=== PATIENT | female | born 1975 | race Two or more races ===

== ENCOUNTER 2020-09-02 09:17 | Inpatient (IN) | payer OTHER ==
[~2020-09-02] VITALS: Ht 167.6 cm; Wt 74.0 kg
[2020-09-23] MEDS ORDERED: AMPICILLIN 2 GM in SODIUM CHLORIDE 0.9% 100 ML IVPB STA (06:13)
[2020-09-23] MEDS ORDERED: TERBUTALINE 1 MG/ML, 1ML IVPush PRN (06:30)
[2020-09-23] MEDS ORDERED: CALCIUM CARBONATE 500 MG TAB.CHEW PO PRN (06:30)
[2020-09-23] MEDS ORDERED: FENTANYL PF 100 MCG/2ML IV PRN (06:30)
[2020-09-23] MEDS ORDERED: TERBUTALINE 1 MG/ML, 1ML SQ PRN (06:30)
[2020-09-23] MEDS ORDERED: FENTANYL PF 100 MCG/2ML IVPush PRN (06:30)
[2020-09-23] MEDS ORDERED: ONDANSETRON 2MG/ML, 2ML IVPush PRN (06:30)
[2020-09-23] MEDS ORDERED: OXYTOCIN 30U/ 0.9% NaCL 500ML 500 ML IV PRN (06:30)
[2020-09-23] MEDS ORDERED: OXYTOCIN 30U/ 0.9% NaCL 500ML 500 ML IV ONE (06:30)
[2020-09-23] MEDS: LACTATED RINGERS 1,000 ML IV SCH ×3 (06:37→22:30)
[2020-09-23 06:47] LABS: BASOPHILS % (AUTO) 0 % (0-1); EOSINOPHILS % (AUTO) 2 % (1-7); LYMPHOCYTES % (AUTO) 17 % (22-44); MEAN CORPUSCULAR HEMOGLOBIN 32.5 pg (27.0-34.8); MEAN CORPUSCULAR HGB CONC 34.5 g/dL (32.4-35.8); MEAN PLATELET VOLUME 9.9 fL (7.4-10.4); MONOCYTES % (AUTO) 9 % (2-9); NEUTROPHILS % (AUTO) 72 % (42-75); PLATELET COUNT 148 x10^3/uL (130-400); RED BLOOD COUNT 4.33 x10^6/uL (3.82-5.3); RED CELL DISTRIBUTION WIDTH 12.9 % (9.6-15.2)
[2020-09-23 06:49] LABS: MD NO
[2020-09-23] MEDS: D5%-LACTATED RINGERS 1,000 ML IV SCH ×3 (07:00→23:00)
[2020-09-23] MEDS: AMPICILLIN 1 GM in SODIUM CHLORIDE 0.9% 100 ML IVPB SCH ×5 (10:22→22:30)
[2020-09-23 20:00] VITALS: BP 121/85
[2020-09-23] MEDS ORDERED: ONDANSETRON 2MG/ML, 2ML ONE (20:56)
[2020-09-24] MEDS ORDERED: OXYTOCIN 30U/ 0.9% NaCL 500ML 500 ML ONE (00:56)
[2020-09-24] MEDS ORDERED: SIMETHICONE 80 MG CHEW TAB PO PRN (01:00)
[2020-09-24] MEDS ORDERED: MISOPROSTOL 200 MCG TABLET PR PRN (01:00)
[2020-09-24] MEDS ORDERED: OXYTOCIN 10 UNITS/ML, 1ML IM PRN (01:00)
[2020-09-24] MEDS ORDERED: METHYLERGONOVINE 0.2 MG/ML IM PRN (01:00)
[2020-09-24] MEDS ORDERED: HYDROcodone/APAP 5/325 TABLET PO PRN ×2 (01:00)
[2020-09-24] MEDS ORDERED: ACETAMINOPHEN 325 MG TABLET PO PRN (01:00)
[2020-09-24] MEDS ORDERED: CARBOPROST TROMETHAMINE 250 MCG/ML, 1ML IM PRN (01:00)
[2020-09-24] MEDS ORDERED: ONDANSETRON 2MG/ML, 2ML IV PRN (01:00)
[2020-09-24] MEDS ORDERED: NEWBORN KIT ONE (01:01)
[2020-09-24 03:00] VITALS: BP 121/84
[2020-09-24] MEDS: IBUPROFEN 600 MG TABLET PO PRN ×3 (05:11→17:37)
[2020-09-24] MEDS: OXYTOCIN 30U/ 0.9% NaCL 500ML 500 ML IV SCH ×2 (07:13→19:00)
[2020-09-24] MEDS: PRENATAL VIT/IRON/FA 1 EACH TABLET PO SCH (07:16)
[2020-09-24] MEDS: DOCUSATE 100 MG CAPSULE PO PRN (07:16)
[2020-09-24 07:35] VITALS: BP 114/76
[2020-09-24 08:56] LABS: MEAN CORPUSCULAR HEMOGLOBIN 32.5 pg (27.0-34.8); MEAN CORPUSCULAR HGB CONC 34.7 g/dL (32.4-35.8); MEAN PLATELET VOLUME 9.8 fL (7.4-10.4); PLATELET COUNT 133 x10^3/uL (130-400); RED CELL DISTRIBUTION WIDTH 12.9 % (9.6-15.2)
[2020-09-24 10:08] LABS: MD YES
[2020-09-24 10:12] LABS: BANDS%(MANUAL) 10 % (0-7); LYMPH#(MANUAL) 0.95 x10^3/uL (1-3.4); LYMPHS% (MANUAL) 5 % (22-44); MONOS#(MANUAL) 1.33 x10^3/uL (0.3-2.7); MONOS% (MANUAL) 7 % (2-9); SEG#(MANUAL) 14.82 x10^3/uL (1.8-6.8); SEGS% (MANUAL) 78 % (42-75)
[2020-09-24 10:14] LABS: <RBC MORPHOLOGY> NORMAL
[2020-09-24 10:15] LABS: <PLATELET ESTIMATE> ADEQUATE; <PLT MORPHOLOGY> NORMAL PLT MORPH
[2020-09-24 11:50] VITALS: BP 110/74
[2020-09-24 20:30] VITALS: BP 115/81
[2020-09-25] MEDS: DOCUSATE 100 MG CAPSULE PO PRN ×3 (00:34→07:39)
[2020-09-25] MEDS: IBUPROFEN 600 MG TABLET PO PRN ×3 (00:34→13:18)
[2020-09-25] MEDS: OXYTOCIN 30U/ 0.9% NaCL 500ML 500 ML IV SCH ×2 (05:00→15:00)
[2020-09-25 07:10] VITALS: BP 110/70
[2020-09-25] MEDS: PRENATAL VIT/IRON/FA 1 EACH TABLET PO SCH (07:37)
[2020-09-25] MEDS ORDERED: IBUP-1222 PO (13:25)
[2020-09-25] MEDS ORDERED: HYDR-1067 PO (13:32)
[2020-09-25] MEDS ORDERED: SENN-52 PO (13:32)
== END 2020-09-25 17:15 | disposition home or self-care (01) | DRG 807 ==
LOC: LDIP 09-23 05:51 → 2NW 09-24 02:42
PROVIDERS: ADMIT Obstetrics & Gynecology; ATTEND Obstetrics & Gynecology
PROC: 10E0XZZ Delivery of Products of Conception, External Approach (ICD-10-PCS; principal; 2020-09-24)
PROC: 10H07YZ Insertion of Other Device into Products of Conception, Via Natural or Artificial Opening (ICD-10-PCS; 2020-09-24)
PROC: 3E0R3BZ Introduction of Anesthetic Agent into Spinal Canal, Percutaneous Approach (ICD-10-PCS; 2020-09-24)
PROC: 00HU33Z Insertion of Infusion Device into Spinal Canal, Percutaneous Approach (ICD-10-PCS; 2020-09-24)
PROC: 10907ZC Drainage of Amniotic Fluid, Therapeutic from Products of Conception, Via Natural or Artificial Opening (ICD-10-PCS; 2020-09-24)
PROC: 0HQ9XZZ Repair Perineum Skin, External Approach (ICD-10-PCS; 2020-09-24)
DX: O99.824 Streptococcus B carrier state complicating childbirth (principal); Z37.0 Single live birth; Z20.822 Contact with and (suspected) exposure to COVID-19; Z3A.39 39 weeks gestation of pregnancy; O70.0 First degree perineal laceration during delivery
CPT/HCPCS: 36415; 85025; 86592; 86850; 86900; G0378; J0290; J2405; J2590; J7120

== ENCOUNTER → 2020-09-17 | Outpatient (CLI) | payer OTHER | END | disposition home or self-care (01) | LOC: STAR 11:03 | PROVIDERS: ATTEND Obstetrics & Gynecology | DX: Z20.822 Contact with and (suspected) exposure to COVID-19 (principal) | CPT/HCPCS: U0003 ==

== ENCOUNTER 2021-04-01 08:37 | Outpatient (CLI) | payer OTHER ==
[~2021-04-01 08:37] MED LIST: HYDR-2214 PO; IBUP-1222 PO; SENN-52 PO
[2021-04-01] MEDS ORDERED: FLUO10CA13 PO (08:54)
[2021-04-01 09:27] LABS: MICROSCOPIC NOT IND
[2021-04-01 09:31] LABS: BASOPHILS % (AUTO) 1 % (0-1); EOSINOPHILS % (AUTO) 4 % (1-7); LYMPHOCYTES % (AUTO) 21 % (22-44); MEAN CORPUSCULAR HEMOGLOBIN 34.1 pg (27.0-34.8); MEAN CORPUSCULAR HGB CONC 35.2 g/dL (32.4-35.8); MONOCYTES % (AUTO) 8 % (2-9); NEUTROPHILS % (AUTO) 66 % (42-75); PLATELET COUNT 261 x10^3/uL (130-400); RED BLOOD COUNT 4.45 x10^6/uL (3.82-5.3); RED CELL DISTRIBUTION WIDTH 12.2 % (9.6-15.2)
[2021-04-01 09:35] LABS: ALANINE AMINOTRANSFERASE 16 U/L (12-78); ALBUMIN 4.1 g/dL (3.4-5.0); ANION GAP 7 mmol/L (5-15); CALCIUM 9.2 mg/dL (8.5-10.1); CHLORIDE 105 mmol/L (98-107); CREATININE 0.76 mg/dL (0.55-1.02)
[2021-04-01 09:40] LABS: ALKALINE PHOSPHATASE 52 U/L (45-117); BILIRUBIN,TOTAL 0.7 mg/dL (0.2-1.0); TOTAL PROTEIN 7.5 g/dL (6.4-8.2)
== END 2021-04-01 23:59 | disposition home or self-care (01) ==
LOC: STAR 08:37
PROVIDERS: ATTEND Obstetrics & Gynecology Gynecology
DX: Z01.812 Encounter for preprocedural laboratory examination (principal); Z20.822 Contact with and (suspected) exposure to COVID-19; N81.11 Cystocele, midline; N39.3 Stress incontinence (female) (male)
CPT/HCPCS: 80053; 81003; 84702; 85025; 87086; 87635

== ENCOUNTER 2021-04-07 10:30 | Day surgery (SDC) | payer OTHER ==
[~2021-04-07] VITALS: Ht 167.6 cm; Wt 63.1 kg
[~2021-04-07 10:30] MED LIST changes: +BUPIVACAINE/PF 0.25% ONE; +EPINEPHRINE 1 MG/ML, 1ML ONE; +FLUO10CA13 PO; +GENTAMICIN 80 MG/2 ML ONE; +LIDOCAINE/PF 1%, 30ML ONE; +MANNITOL PMX 20% 0 ML ONE; +SILVER NITRATE STICK TP ONE; +VANCOMYCIN 500 MG ONE
[2021-04-07] MEDS ORDERED: SODIUM CHLORIDE 0.9% 50 ML ONE ×2 (10:34→11:45)
[2021-04-07 11:02] VITALS: BP 113/81
[2021-04-07] MEDS ORDERED: CHLORHEXIDINE 15 ML UDC ONE (11:09)
[2021-04-07 11:15] LABS: HCG UR SG 1.027 (1.003-1.030)
[2021-04-07] MEDS ORDERED: GENTAMICIN 80 MG/2 ML ONE (11:45)
[2021-04-07] MEDS ORDERED: LIDOCAINE/PF 1%, 30ML ONE (11:45)
[2021-04-07] MEDS ORDERED: SCOPOLAMINE 1MG PATCH TD ONE (11:50)
[2021-04-07] MEDS ORDERED: FENTANYL PF 250 MCG/5ML ONE (11:59)
[2021-04-07] MEDS ORDERED: MIDAZOLAM 1 MG/ML, 2ML ONE (11:59)
[2021-04-07] MEDS ORDERED: PROPOFOL 50 ML ONE (12:51)
[2021-04-07] MEDS ORDERED: HYDROmorphone 1 MG/ML, 1ML INJ IVPush PRN (13:30)
[2021-04-07] MEDS ORDERED: LABETALOL 5MG/ML, 20ML IV PRN (13:30)
[2021-04-07] MEDS ORDERED: MIDAZOLAM 1 MG/ML, 2ML IV PRN (13:30)
[2021-04-07] MEDS ORDERED: EPHEDRINE 50 MG/ML, 1ML IVPush PRN (13:30)
[2021-04-07] MEDS ORDERED: hydrALAzine 20 MG/ML, 1ML IV PRN (13:30)
[2021-04-07] MEDS ORDERED: PROMETHAZINE 25 MG/ML, 1ML IVPush PRN (13:30)
[2021-04-07] MEDS ORDERED: EPHEDRINE 50 MG/ML, 1ML IM PRN (13:30)
[2021-04-07] MEDS ORDERED: HALOPERIDOL 5 MG/ML IV PRN (13:30)
[2021-04-07] MEDS ORDERED: ONDANSETRON 2MG/ML, 2ML IVPush PRN (13:30)
[2021-04-07] MEDS ORDERED: OXYcodone 5 MG/5 ML ORAL.SOL UDC PO PRN (13:30)
[2021-04-07] MEDS ORDERED: METHOCARBAMOL 1,000 MG in DEXTROSE 5% 100 ML IV PRN (13:30)
[2021-04-07] MEDS ORDERED: FENTANYL PF 100 MCG/2ML IV PRN (13:30)
[2021-04-07] MEDS ORDERED: ACETAMINOPHEN 325 MG TABLET PO PRN (13:30)
[2021-04-07] MEDS ORDERED: MEPERIDINE/PF 25MG/0.5ML IVPush PRN (13:30)
== END 2021-04-07 16:05 | disposition home or self-care (01) ==
LOC: OUT 10:30
PROVIDERS: ATTEND Obstetrics & Gynecology Gynecology
DX: Z30.2 Encounter for sterilization (principal); R32 Unspecified urinary incontinence; N81.11 Cystocele, midline; N83.202 Unspecified ovarian cyst, left side; N36.42 Intrinsic sphincter deficiency (ISD); Z79.899 Other long term (current) drug therapy
CPT/HCPCS: 36415; 57288; 58670; 81025; 86850; 86900; 88302; C1771; J0171; J1580; J2250; J2704; J3010; J3370; 88305